=== PATIENT | female | born 1990 | race Two or more races ===

== ENCOUNTER 2016-11-30 08:18 | Emergency (ER) | payer SELFPAY ==
[~2016-11-30] VITALS: Ht 160 cm; Wt 90.7 kg
[~2016-11-30 08:18] MED LIST: HYDR-971 PO
[2016-11-30] MEDS ORDERED: IV NORMAL SALINE 1000ML BAG 1,000 ML IV SCH (09:27)
[2016-11-30] MEDS ORDERED: ONDANSETRON PF 4 MG/2 ML VIAL. IV ONE (09:30)
[2016-11-30] MEDS ORDERED: FENTANYL PF 100 MCG/2 ML VIAL. IV PRN (09:30)
--- NOTE | 2016-11-30 09:35 | PHYS DOC ---
Past Medical History Past Medical History: Other Additional Past Medical Histor: miscarriage Past Surgical History: No Surgical History Alcohol Use: None Drug Use: None Adult General Chief Complaint Chief Complaint: ABDOMINAL PAIN HPI HPI Patient is a 26 year old female who presents with complaint of worsening pelvic cramping for the past 3 days. The patient states that she recently had a miscarriage in June 2016. Patient had a normal period in August 2016. Patient states that she has not had a period since that time. Patient also states that she underwent artificial insemination 3 weeks ago at another facility as she is attempting to get . Patient states that the cramping has become severe and rates it currently as 9 out of 10. Patient states that she was seen within the last 2 days and had a test that was reported negative. Patient states she took one at home prior to that and it was positive. Patient denies any fevers and is not having any vaginal bleeding or abnormal vaginal discharge. Patient took Tylenol to help with symptoms with no relief. Review of Systems Review of Systems Constitutional: Denies fever or chills [] Eyes: Denies change in visual acuity, redness, or eye pain [] HENT: Denies nasal congestion or sore throat [] Respiratory: Denies cough or shortness of breath [] Cardiovascular: Denies chest pain or edema [] GI: Denies abdominal pain, nausea, vomiting, bloody stools or diarrhea [] : Pelvic pain, denies vaginal bleeding, dysuria or hematuria [] Musculoskeletal: Denies back pain or joint pain [] Integument: Denies rash or skin lesions [] Neurologic: Denies headache, focal weakness or sensory changes [] Endocrine: Denies polyuria or polydipsia [] Current Medications Current Medications Current Medications Medications (Trade) Dose Ordered Sig/[facility] Start Time Stop Time Status Last Admin Dose Admin Fentanyl Citrate 50 mcg 50 mcg PRN Q15MIN PRN 11/30/16 09:30 11/30/16 12:59 DC 11/30/16 11:00 50 MCG Ondansetron HCl (Zofran) 4 mg 1X ONCE 11/30/16 09:30 11/30/16 09:36 DC 11/30/16 10:59 4 MG Sodium Chloride (Iv Sodium Chloride 0.9% 1000ml Bag) 1,000 ml @ 1,000 mls/hr Q1H 11/30/16 09:27 11/30/16 10:26 DC 11/30/16 09:59 1,000 MLS/HR Allergies Allergies Allergies Coded Allergies Type Severity Reaction Last Updated Verified No Known Drug Allergies 07/28/16 No Physical Exam Physical Exam Constitutional: Alert, obese, afebrile, appears in mild discomfort. [] HENT: Normocephalic, atraumatic, bilateral external ears normal, oropharynx moist, no oral exudates, nose normal. [] Eyes: PERRLA, EOMI, conjunctiva normal, no discharge. [] Neck: Normal range of motion, no tenderness, supple, no stridor. [] Cardiovascular:Heart rate regular rhythm, no murmur [] Lungs & Thorax: Bilateral breath sounds clear to auscultation [] Abdomen: Bowel sounds normal, soft, no tenderness, no masses, no pulsatile masses. Pelvic: Normal external exam, no abnormal discharge or blood in vaginal canal, no cervical motion tenderness, no midline or bilateral adnexal tenderness to palpation [] Skin: Warm, dry, no erythema, no rash. [] Back: No tenderness, no CVA tenderness. [] Extremities: No tenderness, no cyanosis, no clubbing, ROM intact, no edema. [] Neurologic: Alert and oriented X 3, normal motor function, normal sensory function, no focal deficits noted. [] Current Patient Data Vital Signs Vital Signs Date Time Temp Pulse Resp B/P Pulse Ox O2 Delivery O2 Flow Rate FiO2 11/30/16 12:00 59 16 100/55 98 Room Air 11/30/16 09:06 98.0 98.0 Lab Values Laboratory Tests Test 11/30/16 08:57 11/30/16 10:34 Urine Collection Type Void Urine Color Yellow Urine Clarity Clear Urine pH 6.0 Urine Specific [place] 1.025 Urine Protein Negativemg/dL (NEG-TRACE) Urine Glucose (UA) Negativemg/dL (NEG) Urine Ketones (Stick) Negativemg/dL (NEG) Urine Blood Negative (NEG) Urine Nitrite Negative (NEG) Urine Bilirubin Negative (NEG) Urine Urobilinogen Dipstick 0.2mg/dL (0.2 mg/dL) Urine Leukocyte Esterase Negative (NEG) Urine RBC 0/HPF (0-2) Urine WBC 1-4/HPF (0-4) Urine Squamous Epithelial Cells Few/LPF Urine Bacteria Moderate/HPF (0-FEW) Urine Test Negative (NEG) White Blood Count 7.6x10^3/uL (4.0-11.0) Red Blood Count 4.59x10^6/uL (3.50-5.40) Hemoglobin 13.4g/dL (12.0-15.5) Hematocrit 40.7% (36.0-47.0) Mean Corpuscular Volume 89fL (79-100) Mean Corpuscular Hemoglobin 29pg (25-35) Mean Corpuscular Hemoglobin Concent 33g/dL (31-37) Red Cell Distribution Width 14.1% (11.5-14.5) Platelet Count 334x10^3/uL (140-400) Neutrophils (%) (Auto) 64% (31-73) Lymphocytes (%) (Auto) 28% (24-48) Monocytes (%) (Auto) 6% (0-9) Eosinophils (%) (Auto) 1% (0-3) Basophils (%) (Auto) 1% (0-3) Neutrophils # (Auto) 4.9x10^3uL (1.8-7.7) Lymphocytes # (Auto) 2.1x10^3/uL (1.0-4.8) Monocytes # (Auto) 0.4x10^3/uL (0.0-1.1) Eosinophils # (Auto) 0.1x10^3/uL (0.0-0.7) Basophils # (Auto) 0.1x10^3/uL (0.0-0.2) Sodium Level 137mmol/L (136-145) Potassium Level 4.0mmol/L (3.5-5.1) Chloride Level 104mmol/L (98-107) Carbon Dioxide Level 26mmol/L (21-32) Anion Gap 7 (6-14) Blood Urea Nitrogen 12mg/dL (7-20) Creatinine 0.8mg/dL (0.6-1.0) Estimated GFR (Cockcroft-Gault) 88.1 BUN/Creatinine Ratio 15 (6-20) Glucose Level 110mg/dL (70-99) H Calcium Level 9.1mg/dL (8.5-10.1) Magnesium Level 2.0mg/dL (1.8-2.4) Total Bilirubin 0.2mg/dL (0.2-1.0) Aspartate Amino Transferase (AST) 15U/L (15-37) Alanine Aminotransferase (ALT) 25U/L (14-59) Alkaline Phosphatase 106U/L (46-116) Total Protein 8.2g/dL (6.4-8.2) Albumin 3.6g/dL (3.4-5.0) Albumin/Globulin Ratio 0.8 (1.0-1.7) L Serum Test, Qualitative Negative (NEG) Laboratory Tests 11/30/16 10:34 Laboratory Tests 11/30/16 10:34 Microbiology 11/30/16 Wet Prep - Final, Complete Microbiology 11/30/16 Wet Prep - Final, Complete EKG EKG Not performed [] Radiology/Procedures Radiology/Procedures [facility] [address] [place] [address] IMAGING REPORT Signed PATIENT: AICHA TAYLOR V ACCOUNT: [id number] : 1990 LOCATION: ER AGE: 26 SEX: F EXAM STATUS: REG ER ORD. PHYSICIAN: MITCHELL RENEE MD REASON: severe pelvic pain, reports artificial insemination 3 weeks ago PROCEDURE: PELVIS W/TV EXAM: Pelvic sonogram. HISTORY: Pelvic pain. TECHNIQUE: Transabdominal and transvaginal sonographic imaging of the pelvis was performed. COMPARISON: None. FINDINGS: The uterus measures 6.7 x 3.6 x 3.1 cm. The endometrial stripe measures 8 mm. The right ovary measures 3.3 x 2.4 x 2.6 cm. The left ovary measures 2.9 x 2.1 x 2.2 cm. There is normal blood flow within both ovaries. There are multiple bilateral ovarian follicles. The left ovarian follicles are in a predominantly peripheral distribution. However, there is no similar finding within the right ovary to suggest polycystic ovary syndrome. There are nabothian cysts within the cervix. IMPRESSION: 1. Multiple ovarian follicles, the left of which are predominantly peripheral in distribution. Given the absence of a similar finding within the right ovary, this is likely not secondary to polycystic ovary syndrome. 2. Nabothian cysts within the cervix. DICTATED and SIGNED BY: YOLIS ADAMS MD DATE: 11/30/16 1036 CC: MITCHELL RENEE MD; KRYSTEN STEEL Jr, MD ~ [] Course & Med Decision Making Course & Med Decision Making Pertinent Labs and Imaging studies reviewed. (See chart for details) Patient was given IV fluids, fentanyl, and Zofran. Patient's symptoms have improved at this time. The patient's lab work is negative for . The patient will be treated with ibuprofen for her pelvic pain and advised follow- up with Dr. Steel within the next 3 days. Advised return to emergency department for any worsening symptoms. Patient voiced understanding and in agreement with treatment plan. Dragon Disclaimer Dragon Disclaimer This electronic medical record was generated, in whole or in part, using a voice recognition dictation system. Departure Departure Impression: Primary Impression: Pelvic pain Disposition: 01 HOME, SELF-CARE Condition: IMPROVED Referrals: NO PCP (PCP) KRYSTEN STEEL Jr, MD Patient Instructions: Pelvic Pain, Female Additional Instructions: Follow-up with Dr. Steel in the next 2-3 days. Return to the emergency department for any worsening symptoms. Scripts Ibuprofen 600 Mg [id number] Mg PO Q6HRS PRN PAIN #30 TAB Prov:MITCHELL RENEE MD 11/30/16 MITCHELL RENEE MD Nov 30, 2016 09:34
[2016-11-30 10:04] LABS: NEG OBC UR NEG; POS OBC UR POS
[2016-11-30 10:11] LABS: BILIRUBIN,URINE NEGATIVE (NEG); GLUCOSE,URINE NEGATIVE (NEG); NITRITE,URINE NEGATIVE (NEG); PROTEIN,URINE NEGATIVE (NEG-TRACE); UROBILINOGEN,URINE 0.2 mg/dL (0.2 mg/dL)
[2016-11-30 10:27] LABS: BACTERIA,URINE MODERATE /HPF (0-FEW); RBC,URINE 0 /HPF (0-2); SQUAMOUS EPITHELIAL CELL,UR FEW /LPF
[2016-11-30 10:39] LABS: BASO # 0.1 x10^3/uL (0.0-0.2); BASO % 1 % (0-3); EOS % 1 % (0-3); HEMATOCRIT 40.7 % (36.0-47.0); HEMOGLOBIN 13.4 g/dL (12.0-15.5); LYMPH # 2.1 x10^3/uL (1.0-4.8); LYMPH % 28 % (24-48); MEAN CORPUSCULAR HEMOGLOBIN 29 pg (25-35); MEAN CORPUSCULAR HGB CONC 33 g/dL (31-37); MEAN CORPUSCULAR VOLUME 89 fL (79-100); MONO % 6 % (0-9); NEUT % 64 % (31-73); PLATELET COUNT 334 x10^3/uL (140-400); RED BLOOD COUNT 4.59 x10^6/uL (3.50-5.40); RED CELL DISTRIBUTION WIDTH 14.1 % (11.5-14.5); WHITE BLOOD COUNT 7.6 x10^3/uL (4.0-11.0)
--- NOTE | 2016-11-30 10:40 | RAD ---
EXAM: Pelvic sonogram. HISTORY: Pelvic pain. TECHNIQUE: Transabdominal and transvaginal sonographic imaging of the pelvis was performed. COMPARISON: None. FINDINGS: The uterus measures 6.7 x 3.6 x 3.1 cm. The endometrial stripe measures 8 mm. The right ovary measures 3.3 x 2.4 x 2.6 cm. The left ovary measures 2.9 x 2.1 x 2.2 cm. There is normal blood flow within both ovaries. There are multiple bilateral ovarian follicles. The left ovarian follicles are in a predominantly peripheral distribution. However, there is no similar finding within the right ovary to suggest polycystic ovary syndrome. There are nabothian cysts within the cervix. IMPRESSION: 1. Multiple ovarian follicles, the left of which are predominantly peripheral in distribution. Given the absence of a similar finding within the right ovary, this is likely not secondary to polycystic ovary syndrome. 2. Nabothian cysts within the cervix.
[2016-11-30 10:49] LABS: CALCIUM 9.1 mg/dL (8.5-10.1); CREATININE 0.8 mg/dL (0.6-1.0); GFR 88.1
[2016-11-30 10:51] LABS: NEG OBC SER NEG; POS OBC SER POS
[2016-11-30 10:55] LABS: ALBUMIN 3.6 g/dL (3.4-5.0); ALBUMIN/GLOBULIN RATIO 0.8 (1.0-1.7); TOTAL BILIRUBIN 0.2 mg/dL (0.2-1.0); TOTAL PROTEIN 8.2 g/dL (6.4-8.2)
[2016-11-30 12:00] VITALS: BP 100/55
[2016-11-30] MEDS ORDERED: IBUP-1007 PO (12:45)
== END 2016-11-30 12:55 | disposition home or self-care (01) ==
LOC: ER 08:18
DX: R10.2 Pelvic and perineal pain (principal)
CPT/HCPCS: 36415; 76830; 76856; 80053; 81001; 81025; 83735; 84703; 85027; 87491; 87591; 96361; 96374; 96375; 99285; J2405; J3010; J7030; Q0111